=== PATIENT | female | born 1960 | race Caucasian/White ===

== ENCOUNTER 2020-08-29 22:44 | Emergency (ER) | payer MEDICAID ==
[~2020-08-29] VITALS: Ht 157.5 cm; Wt 72.6 kg
[2020-08-29 22:49] VITALS: BP 159/75
--- NOTE | 2020-08-29 22:49 | NUR ---
TO BED # 04 AMBULATORY
--- NOTE | 2020-08-29 22:59 | NUR ---
TO X-RAY VIA W/C
--- NOTE | 2020-08-29 22:59 | NUR ---
PT TAKEN TO XRAY FROM TRIAGE
--- NOTE | 2020-08-29 23:22 | NUR ---
Dr. Howard examining patient.
[2020-08-29] MEDS ORDERED: KETOROLAC 30 MG/ML VIAL IVP ONE (23:25)
[2020-08-29] MEDS: fentaNYL citrate 0.05 MG/ML VIAL IVP ONE ×2 (23:25→23:51)
--- NOTE | 2020-08-29 23:33 | NUR ---
X-Ray at bedside.
[2020-08-29] MEDS ORDERED: PROPOFOL 200 MG/20 ML VIAL IV ONE (23:55)
--- NOTE | 2020-08-30 00:57 | NUR ---
Dr. Howard and Respiratory Therapists at bedside
--- NOTE | 2020-08-30 01:00 | NUR ---
CONSCIOUS SEDATION DONE. PLEASE SEE FLOW SHEETS.
--- NOTE | 2020-08-30 01:07 | NUR ---
PROCEDURE COMPLETE. AWAKE ALERT, RESPIRARIONS REGULAR AND UNLABORED
--- NOTE | 2020-08-30 01:08 | NUR ---
X-Ray at bedside.
[2020-08-30] MEDS ORDERED: HYDROcodone/APAP 5/325 MG 1 TAB TAB PO ONE (01:35)
[2020-08-30 01:50] VITALS: BP 159/75
--- NOTE | 2020-08-30 01:50 | NUR ---
Patient discharged with v/s stable. Written and verbal after care instructions given and explained. Patient alert, oriented and verbalized understanding of instructions. Ambulatory with steady gait. All questions addressed prior to discharge. ID band removed. Patient advised to follow up with PMD. Rx of NAPROSYN & NORCO given. Patient educated on indication of medication including possible reaction and side effects. Opportunity to ask questions provided and answered. CD IN POSESSION
== END 2020-08-30 01:50 | disposition home or self-care (01) ==
LOC: MED 22:44
DX: S52.501A Unspecified fracture of the lower end of right radius, initial encounter for closed fracture (principal); E11.9 Type 2 diabetes mellitus without complications; W01.0XXA Fall on same level from slipping, tripping and stumbling without subsequent striking against object, initial encounter; Y93.89 Activity, other specified; Y92.89 Other specified places as the place of occurrence of the external cause; Y99.8 Other external cause status
CPT/HCPCS: 25605; 73070; 73080; 73090; 73100; 73110; 96374; 99152; 99285; J1885; J2704; J3010